=== PATIENT | male | born 1995 | race American Indian/Alaskan Native ===

== ENCOUNTER 2020-07-14 07:52 | Emergency (ER) | payer SELFPAY ==
[2020-07-14] MEDS ORDERED: LIDOCAINE 2%/EPINEPHRINE 1:200,000 VIAL (20 ML) INFILTRATI ONE (08:13)
[2020-07-14] MEDS ORDERED: DIPHtheria,PERTUSSIS(ACELL),TETANUS VACCINE/PF 0.5 ML VIAL IM ONE (08:13)
[2020-07-14] MEDS ORDERED: HYDROcodone/ACETAMINOPHEN 10-325MG TAB PO ONE (08:54)
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
--- NOTE | 2020-07-14 08:58 | XRay Report ---
RIGHT FOREARM 2 VIEWS INDICATION / CLINICAL INFORMATION: lac r/o foreign body COMPARISON: None available. FINDINGS: BONES / JOINT(S): No acute fracture or subluxation. No significant arthritis. SOFT TISSUES: Small superficial radiopaque foreign bodies at the distal forearm posteriorly with over lying skin swelling. A larger possible foreign body is seen along the ulnar aspect of the wrist at th e level the radiocarpal joint. ADDITIONAL FINDINGS: None. Signer Name: Jamar Franco MD Signed: 07/14/2020 8:54 AM Workstation Name: [id number]
[2020-07-14] MEDS ORDERED: NEOMY 3.5 MG/BACIT 400 UNITS/POLY B 5000 UNITS/GM OINT PACKET TP ONE (10:01)
[2020-07-14 10:23] VITALS: BP 188/90
[2020-07-14] MEDS ORDERED: BACITRACIN ZINC OINT 28.4 GM TP ONE (11:00)
== END 2020-07-14 10:23 | disposition home or self-care (01) ==
LOC: ED 07:52
DX: S50.851A Superficial foreign body of right forearm, initial encounter (principal); S60.851A Superficial foreign body of right wrist, initial encounter; S51.801A Unspecified open wound of right forearm, initial encounter; S40.811A Abrasion of right upper arm, initial encounter; S60.811A Abrasion of right wrist, initial encounter; Z79.899 Other long term (current) drug therapy; W25.XXXA Contact with sharp glass, initial encounter; W45.8XXA Other foreign body or object entering through skin, initial encounter; Y93.89 Activity, other specified; Y92.89 Other specified places as the place of occurrence of the external cause; Y99.8 Other external cause status
CPT/HCPCS: 12042; 73090; 90471; 90715; 99283; A6250